=== PATIENT | female | born 1935 | race African-American/Black ===

== ENCOUNTER → 2016-05-20 | Day surgery (SDC) | payer OTHER ==
[~2016-05-20] MED LIST: AMLODIPINE BESYL5 MG PO; ASPIRIN81 M2 PO; ATENOLOL25 MG PO; AZATHIOPRINE50 M1 PO; B-1100 MG PO; HUMALOG100 U/M2 SQ; LACTULOSE10 G/15 M1 PO; LANTUS SOLOSTAR3 ML SQ; LASIX20 MG PO; OCUVITE SOFTGEL1 CA1 PO; OS-CAL 500 + D500 MG PO; PANTOPRAZOLE SO40 MG PO; VITAMIN B650 M1 PO
--- NOTE | ~2016-05-20 | OR ---
Unit #: [id number] #: [id number] Patient: HERSON LAMB [id number] [address] [place], [place] [address] [id number] MR#: [id number] NAME: HERSON LAMB ROOM: Date of Procedure: 05/20/2016 Admission Date: 05/20/2016 Surgeon: Lucius Gutierrez M.D. : 1935 Attending Physician: Lucius Gutierrez M.D. OPERATIVE REPORT JOB NOTE: CC: PRIMARY CARE PHYSICIAN PROCEDURE PERFORMED Esophagogastroduodenoscopy to descending duodenum and colonoscopy to cecum. INDICATIONS FOR PROCEDURE The patient with liver cirrhosis, undergoing evaluation looking for varices, also with significant 50-pound weight loss which is unexplained and never had a colonoscopy, undergoing colonoscopy looking for possible occult malignancy. MEDICATIONS Monitored anesthesia. POSTOPERATIVE FINDINGS 1. Normal esophagus, stomach, duodenum, and distal duodenum. No varices were seen. 2. Colonoscopy completed to cecum. Prep was good. 3. Mild diverticulosis. 4. No polyps, masses, or colitis. PLAN Symptomatic treatment. DESCRIPTION OF PROCEDURE The patient was explained of the procedure, risks, and benefits along with risks and benefits of anesthesia. She was brought to the endoscopy room. Propofol anesthesia was given. Bite block was placed. The scope was passed down the mouth into the esophagus, stomach, duodenum, and distal duodenum. Findings as described. No biopsies were taken. Gently, the scope was pulled out. She tolerated it well. At this time, she was turned around and repositioned for colonoscopy. Rectal exam was done, which was normal. Colonoscope was lubricated, passed up the rectum, advanced under direct vision all the way to the cecum. Cecum was identified by ileocecal valve and appendiceal orifice. Mild diverticulosis was noted. No polyps, masses, or colitis was seen. I retroflexed in the rectum, small hemorrhoids seen. Scope was gently pulled out. She tolerated it well. No major complications were seen. Dictated by... Unit #: [id number] #: [id number] Patient: HERSON LAMB Ladonna Rios/jj TD: 05/20/2016 23:23 JOB #: [id number] OPERATIVE REPORT Page 1 of 1 X Lucius Gutierrez MD PROCEDURE OPERATIVE NOTE
== END | disposition home or self-care (01) ==
LOC: COPS 08:35
DX: K57.30 Diverticulosis of large intestine without perforation or abscess without bleeding (principal); K74.60 Unspecified cirrhosis of liver; K64.9 Unspecified hemorrhoids; J45.909 Unspecified asthma, uncomplicated; I10 Essential (primary) hypertension; E11.9 Type 2 diabetes mellitus without complications; I25.10 Atherosclerotic heart disease of native coronary artery without angina pectoris; K21.9 Gastro-esophageal reflux disease without esophagitis; M19.90 Unspecified osteoarthritis, unspecified site; Z88.8 Allergy status to other drugs, medicaments and biological substances; Z79.82 Long term (current) use of aspirin; Z79.899 Other long term (current) drug therapy; Z98.41 Cataract extraction status, right eye; Z98.42 Cataract extraction status, left eye; Z98.51 Tubal ligation status
CPT/HCPCS: 82947